=== PATIENT | female | born 1975 | race African-American/Black ===

== ENCOUNTER 2018-09-01 09:49 | Emergency (ER) | payer BC, MEDICAID ==
[2018-09-01] MEDS ORDERED: CLONIDINE HCL 0.2 MG TABLET PO ONE (10:04)
--- NOTE | 2018-09-01 10:09 | ER Document Report ---
ED Blood Pressure Problem - General Chief Complaint: High Blood Pressure Stated Complaint: BLOOD PRESSURE ISSUES Time Seen by Provider: 09/01/18 10:04 Mode of Arrival: Ambulatory Information source: Patient Notes: Chief complaint: Blood pressure History of complain:( obtained from----patient) 42 years old female moved from another town, unable to find a doctor, her blood pressure medications running out she was taking 4 of them and 2 of them have completely ran out. She was taking only clonidine and amlodipine. Presents here to refill her prescriptions. Had slight headache on and off. No other constitutional symptoms Onset: Gradual Duration: Long-standing Severity: Mild Quality: Not applicable Context: As described above Exacerbating factor and relieving factors: REVIEW OF SYSTEMS: CONSTITUTIONAL : Denies fever, chills, or sweats. Denies recent illness. EENT: Denies eye, ear, throat, or mouth pain or symptoms. Denies nasal or sinus congestion or discharge. Denies throat, tongue, or mouth swelling or difficulty swallowing. CARDIOVASCULAR: Denies chest pain. Denies palpitations or racing or irregular heart beat. Denies ankle edema. RESPIRATORY: Denies cough, cold, or chest congestion. Denies shortness of breath, difficulty breathing, or wheezing. GASTROINTESTINAL: Denies distention. Denies nausea, vomiting, or diarrhea. Denies blood in vomitus, stools, or per rectum. Denies black, tarry stools. Denies constipation. GENITOURINARY: Denies difficulty urinating, painful urination, burning, frequency, blood in urine, or discharge. FEMALE GENITOURINARY: Denies vaginal bleeding, heavy or abnormal periods, irregular periods. Denies vaginal discharge or odor. MUSCULOSKELETAL: Denies back or neck pain or stiffness. Denies joint pain or swelling. SKIN: Denies rash, lesions or sores. HEMATOLOGIC : Denies easy bruising or bleeding. LYMPHATIC: Denies swollen, enlarged glands. NEUROLOGICAL: Denies confusion or altered mental status. Denies passing out or loss of consciousness. Denies dizziness or lightheadedness. Denies headache. Denies weakness or paralysis or loss of use of either side. Denies problems with gait or speech. Denies sensory loss, numbness, or tingling. Denies seizures. PSYCHIATRIC: Denies anxiety or stress. Denies depression, suicidal ideation, or homicidal ideation. ALL OTHER SYSTEMS REVIEWED AND NEGATIVE. PHYSICAL EXAMINATION: GENERAL: Well-appearing, well-nourished and in no acute distress. HEAD: Atraumatic, normocephalic. EYES: Pupils equal round and reactive to light, extraocular movements intact, conjunctiva are normal. ENT: Nares patent, oropharynx clear without exudates. Moist mucous membranes. NECK: Normal range of motion, supple without lymphadenopathy LUNGS: Breath sounds clear to auscultation bilaterally and equal. No wheezes rales or rhonchi. HEART: Regular rate and rhythm without murmurs ABDOMEN: Soft, nontender, nondistended abdomen. No guarding, no rebound. No masses appreciated. Examination of genitals-deferred Musculoskeletal: Normal range of motion, no pitting or edema. No cyanosis. NEUROLOGICAL: Cranial nerves grossly intact. Normal speech, normal gait. Normal sensory, motor exams PSYCH: Normal mood, normal affect. SKIN: Warm, Dry, normal turgor, no rashes or lesions noted. Dictation was performed using [employer] voice recognition software TRAVEL OUTSIDE OF THE [place] IN LAST 30 DAYS: No - HPI Notes: Dictated - Related Data Allergies/Adverse Reactions: No Known Allergies Allergy (Unverified 09/01/18 09:49) Past Medical History - Social History Smoking Status: Former Smoker Cigarette use (# per day): No Chew tobacco use (# tins/day): No Frequency of alcohol use: Rare Drug Abuse: None Lives with: Family Family History: Reviewed & Not Pertinent Patient has suicidal ideation: No Patient has homicidal ideation: No Renal/ Medical History: Denies: Hx Peritoneal Dialysis Past Surgical History: Reports: Hx Section Review of Systems - Review of Systems Notes: Dictated Physical Exam - Vital signs Vitals: Temp Pulse Resp BP Pulse Ox 98.8 F 79 18 175/97 H 100 09/01/18 09:56 09/01/18 09:56 09/01/18 09:56 09/01/18 09:56 09/01/18 09:56 - Notes Notes: Dictated Course - Re-evaluation Re-evalutation: 09/01/18 10:06 Blood pressure was controlled with clonidine - Vital Signs Vital signs: Temp Pulse Resp BP Pulse Ox 98.8 F 79 18 175/97 H 100 09/01/18 09:56 09/01/18 09:56 09/01/18 09:56 09/01/18 09:56 09/01/18 09:56 Discharge - Discharge Clinical Impression: Hypertension Qualifiers: Hypertension type: essential hypertension Qualified Code(s): I10 - Essential ( primary) hypertension Condition: Fair Instructions: High Blood Pressure ([facility]) Prescriptions: Amlodipine Besylate [Norvasc 5 mg Tablet] 5 mg PO DAILY #30 tablet Atenolol 100 mg PO DAILY #30 tablet Clonidine HCl [Clonidine HCl ER] 0.1 mg PO Q12 #60 tab.er.12h Losartan/Hydrochlorothiazide [Losartan-Hctz 100-25 mg Tab] 1 each PO DAILY #30 tablet Referrals: ABBY KIM MD [Primary Care Provider] - Follow up as needed
[2018-09-01 11:18] VITALS: BP 159/96
== END 2018-09-01 11:18 | disposition home or self-care (01) ==
LOC: ER 09:49
DX: Z76.0 Encounter for issue of repeat prescription (principal); R51 Headache; I10 Essential (primary) hypertension; Z79.899 Other long term (current) drug therapy; Z87.891 Personal history of nicotine dependence
CPT/HCPCS: 99283

== ENCOUNTER 2019-02-12 11:38 | Emergency (ER) | payer SELFPAY ==
[2019-02-12] MEDS ORDERED: ASPIRIN 81 MG TABLET, CHEWABLE PO ONE (12:05)
[2019-02-12 12:18] LABS: ABSOLUTE BASOPHILS # (AUTO) 0.1 10^3/uL (0.0-0.2); ABSOLUTE LYMPHOCYTES (AUTO) 1.8 10^3/uL (0.5-4.7); ABSOLUTE MONOCYTES (AUTO) 0.4 10^3/uL (0.1-1.4); EOSINOPHILS % (AUTO) 0.7 % (0-6); HEMOGLOBIN 12.4 g/dL (12.0-15.5); MEAN CORPUSCULAR HEMOGLOBIN 29.2 pg (27.0-33.4); MEAN CORPUSCULAR HGB CONC 33.6 g/dL (32.0-36.0); MEAN CORPUSCULAR VOLUME 87 fl (80-97); MONOCYTES % (AUTO) 7.4 % (3-13); PLATELET COUNT 271 10^3/uL (150-450); RED BLOOD COUNT 4.25 10^6/uL (3.72-5.28); RED CELL DISTRIBUTION WIDTH 14.9 % (11.5-14.0); SEGMENTED NEUTROPHILS % (AUTO) 56.9 % (42-78); TOTAL CELLS COUNTED % (AUTO) 100 %; WHITE BLOOD COUNT 5.3 10^3/uL (4.0-10.5)
[2019-02-12 12:32] LABS: ALANINE AMINOTRANSFERASE 18 U/L (9-52); ALBUMIN 4.6 g/dL (3.5-5.0); ALKALINE PHOSPHATASE 70 U/L (38-126); ANION GAP 11 (5-19); ASPARTATE AMINO TRANSFERASE 22 U/L (14-36); BILIRUBIN,DIRECT 0.2 mg/dL (0.0-0.4); BILIRUBIN,TOTAL 0.3 mg/dL (0.2-1.3); BLOOD UREA NITROGEN 11 mg/dL (7-20); CALCIUM 9.2 mg/dL (8.4-10.2); CARBON DIOXIDE 27 mmol/L (22-30); CHLORIDE 103 mmol/L (98-107); CREATINE KINASE 97 U/L (30-135); GLUCOSE 95 mg/dL (75-110); POTASSIUM 3.7 mmol/L (3.6-5.0); SODIUM 140.7 mmol/L (137-145); TOTAL PROTEIN 8.3 g/dL (6.3-8.2)
[2019-02-12] MEDS ORDERED: HYDROCHLOROTHIAZIDE 25 MG TABLET PO ONE (12:34)
[2019-02-12] MEDS ORDERED: LOSARTAN POTASSIUM 50 MG TABLET PO ONE (12:34)
[2019-02-12] MEDS ORDERED: AMLODIPINE BESYLATE 5 MG TABLET PO ONE (12:35)
[2019-02-12] MEDS ORDERED: CLONIDINE HCL 0.1 MG TABLET PO ONE (12:35)
[2019-02-12 12:52] LABS: CREATINE KINASE MB 1.47 ng/mL (<4.55)
[2019-02-12 12:54] LABS: TROPONIN I 0.094 ng/mL
--- NOTE | 2019-02-12 13:58 | RADIOLOGY REPORT (SQ) ---
EXAM DESCRIPTION: CHEST SINGLE VIEW COMPLETED DATE/TIME: 02/12/2019 1:44 pm REASON FOR STUDY: chest pain COMPARISON: 04/20/2010 EXAM PARAMETERS: NUMBER OF VIEWS: One view. TECHNIQUE: Single frontal radiographic view of the chest acquired. RADIATION DOSE: NA LIMITATIONS: None. FINDINGS: LUNGS AND PLEURA: No opacities, masses or pneumothorax. No pleural effusion. MEDIASTINUM AND HILAR STRUCTURES: No masses. Contour normal. HEART AND VASCULAR STRUCTURES: Heart normal in size. Normal vasculature. BONES: No acute findings. HARDWARE: None in the chest. OTHER: No other significant finding. IMPRESSION: NO ACUTE RADIOGRAPHIC FINDING IN THE CHEST. TECHNICAL DOCUMENTATION: JOB ID: [id number] [email or web address]- All Rights Reserved Reading location - IP/workstation name: [email or web address]
--- NOTE | 2019-02-12 14:27 | ER Document Report ---
ED General - General Chief Complaint: Chest Pain Stated Complaint: CHEST PAIN Time Seen by Provider: 02/12/19 12:23 Primary Care Provider: [facility] JONES [NO LOCAL MD] - Follow up as needed TRAVEL OUTSIDE OF THE [place] IN LAST 30 DAYS: No - HPI Notes: Patient is a 43-year-old female who presents to the emergency department for evaluation of chest pain. She states is been going on for the last 2 to 3 days. She states her pain and achy pain, rates it a 2 out of 5. It is in the left upper chest. It does not radiate. It lasts approximately 15 seconds when it comes. She denies any aggravating or alleviating factors. She denies any associated shortness of breath, nausea, diaphoresis, near syncope. The patient also states that she is out of her blood pressure medication. She recently moved from [place]. She states that she was on blood pressure medications but has not yet established with a primary care physician. She had been here in the past and received a refill on her medications, but she ran out of them yesterday. She denies any headaches, no visual changes. She is still urinating normally. Speaking and swallowing without difficulty. Moving all 4 extremities normally. - Related Data Allergies/Adverse Reactions: No Known Allergies Allergy (Unverified 09/01/18 09:49) Past Medical History - Social History Smoking Status: Current Some Day Smoker Frequency of alcohol use: None Drug Abuse: None Family History: DM, Hypertension. denies: CAD Patient has suicidal ideation: No Patient has homicidal ideation: No - Past Medical History Cardiac Medical History: Reports: Hx Hypertension Renal/ Medical History: Denies: Hx Peritoneal Dialysis Past Surgical History: Reports: Hx Section Review of Systems - Review of Systems Constitutional: No symptoms reported EENT: No symptoms reported Cardiovascular: See HPI Respiratory: No symptoms reported Gastrointestinal: No symptoms reported Genitourinary: No symptoms reported Female Genitourinary: No symptoms reported Musculoskeletal: No symptoms reported Skin: No symptoms reported Neurological/Psychological: No symptoms reported Physical Exam - Vital signs Vitals: Temp Pulse Resp BP Pulse Ox 98.0 F 67 16 204/113 H 67 L 02/12/19 11:42 02/12/19 11:42 02/12/19 11:42 02/12/19 11:42 02/12/19 11:42 - Notes Notes: Vital signs reviewed, please refer to chart. Head is normocephalic, atraumatic. Pupils equal round, reactive to light. Neck is supple without meningismus. Heart is regular rate and rhythm. Lungs are clear to auscultation bilaterally. Chest wall excursion is equal bilaterally. Chest wall is tender over the area of her pain. Abdomen is soft, nontender, normoactive bowel sounds throughout. Extremities without cyanosis, clubbing. Posterior calves are nontender. Peripheral pulses are equal. Skin is warm and dry. Patient is awake, alert, neurological exam is nonfocal. Course - Re-evaluation Re-evalutation: 02/12/19 14:27 Patient is a 43-year-old female presents to the emergency department for evaluation of chest pain. She is markedly hypertensive on arrival but has not taken any of her medications. She is given her medications while here and her blood pressure improved to within normal limits. Laboratory investigations were obtained. Her initial troponin is indeterminate. Patient's chest pain is certainly not typical for angina. She obviously has risk factors and that she has an elevated BMI, smokes, and has significantly elevated blood pressure. Delta troponin has been ordered, will continue to follow. 02/12/19 15:05 Patient's story is certainly not typical for angina. Her blood pressures have been markedly improved following medication. She admits that she has been having increased stress, her chest pain certainly seems more likely related to that. Delta troponin is ordered and pending at this time. 02/12/2019 16:15 Patient's troponin came back and is still indeterminately elevated. Patient has not had significant chest pain since then. I explained to the patient that I did not have the labs that confirmed myocardial damage, but I certainly could not rule it out. We talked at length about this. We discussed the need for aggressive risk factor modification. She will follow-up closely. She states s he is more interested in scheduling as an outpatient, will follow up with the community [facility] in clinic. I expressed to her my concerns about the need for a stress test. She is told that she needs to quit smoking. I did write her for a one-month prescription of all of her antihypertensive medications. I reminded her that she could return at any time regarding this chest pain. I reminded her the importance of being compliant with her medications and establishing care with a primary care physician before her blood pressure medications run out. She voiced understanding to all of this. She understands that if this is in fact a cardiac issue her risks are significant, including heart attack, neurological deficits, and ability to care for self, loss of lifestyle, . She is to return to the ED with worsening or new concerning symptoms. - Vital Signs Vital signs: Temp Pulse Resp BP Pulse Ox 98.0 F 67 20 127/86 H 99 02/12/19 11:42 02/12/19 11:42 02/12/19 16:01 02/12/19 16:00 02/12/19 16:01 - Laboratory Result Diagrams: 02/12/19 12:02 02/12/19 12:02 Laboratory results interpreted by me: 02/12/19 02/12/19 12:02 12:02 RDW 14.9 H Total Protein 8.3 H - Diagnostic Test Radiology reviewed: Reports reviewed Radiology results interpreted by me: 02/12/19 14:27 Chest X-Ray 02/12/19 12:05 IMPRESSION: NO ACUTE RADIOGRAPHIC FINDING IN THE CHEST. - EKG Interpretation by Me Additional EKG results interpreted by me: 02/12/19 14:27 Normal sinus mechanism with a rate of [address]pm[address] Left axis deviation. ST changes in the lateral leads most likely consistent with LVH with strain versus lateral ischemia. No old studies available for comparison. Discharge - Discharge Clinical Impression: Elevated blood pressure reading in office with diagnosis of hypertension Chest pain Qualifiers: Chest pain type: unspecified Qualified Code(s): R07.9 - Chest pain, unspecified Condition: Stable Disposition: AGAINST MEDICAL ADVICE Instructions: Chest Pain of Unclear Cause ([facility]), High Blood Pressure, Requiring Treatment ([facility]) Additional Instructions: Take your medications as prescribed. You need to establish care with a primary care physician. [facility], contact them for further follow-up. If you develop worsening or new concerning symptoms of any sort, or if you change your mind regarding staying and having further evaluation as an inpatient, return immediately to the emergency department for reevaluation. Prescriptions: Amlodipine Besylate [Norvasc 5 mg Tablet] 5 mg PO DAILY #30 tablet Atenolol 100 mg PO DAILY #30 tablet Clonidine HCl [Clonidine HCl ER] 0.1 mg PO Q12 #60 tab.er.12h Losartan/Hydrochlorothiazide [Losartan-Hctz 100-25 mg Tab] 1 each PO DAILY #30 tablet Forms: Smoking Cessation Education [facility]errals: [facility] [NO LOCAL MD] - Follow up as needed
[2019-02-12 16:12] VITALS: BP 127/86
--- NOTE | 2019-02-14 10:33 | EKG REPORT ---
SEVERITY:- ABNORMAL ECG - SINUS RHYTHM PROBABLE LEFT ATRIAL ABNORMALITY LVH WITH SECONDARY REPOLARIZATION ABNORMALITY BORDERLINE PROLONGED QT INTERVAL : Confirmed by: Monica Nguyen 14-Feb-2019 10:32:38
== END 2019-02-12 16:25 | disposition left against medical advice (07) ==
LOC: ER 11:38
DX: R07.9 Chest pain, unspecified (principal); I10 Essential (primary) hypertension; Z79.899 Other long term (current) drug therapy; F17.200 Nicotine dependence, unspecified, uncomplicated
CPT/HCPCS: 36415; 71045; 80053; 82550; 82553; 84484; 85025; 93005; 93010; 99285

== ENCOUNTER 2020-07-31 17:50 | Emergency (ER) | payer SELFPAY ==
--- NOTE | 2020-07-31 18:10 | EKG REPORT ---
SEVERITY:- ABNORMAL ECG - SINUS RHYTHM PROBABLE LEFT ATRIAL ABNORMALITY LVH WITH SECONDARY REPOLARIZATION ABNORMALITY BORDERLINE PROLONGED QT INTERVAL : Confirmed by: Edu Galeas MD 31-Jul-2020 18:09:34
--- NOTE | 2020-07-31 18:56 | ER Document Report ---
ED Medical Screen (RME) - General Chief Complaint: Cough Stated Complaint: COUGH/CONGESTION/SOB/CHILLS/CHEST PAIN Time Seen by Provider: 07/31/20 18:51 Primary Care Provider: PAUL,EMPLOYEE [Primary Care Provider] - Follow up as needed Mode of Arrival: Ambulatory Information source: Patient Notes: 44-year-old female presents to ED for cough congestion shortness of breath and chest pain x2 days. She states she took Robitussin yesterday and today. She states she is on 3 blood pressure medicines and she forgot to take them this morning and she is not sure of the name or dose she thinks is amlodipine and clonidine but she is not sure of the other medication. She states she has them at home and she can take them as soon as she gets home. She states Tuesday night she fell asleep with the fan on and the window open. She stated Tuesday morning she started with a cough and congestion. She started taking Robitussin that time. She states she knows she is not supposed to take that when she is got her blood pressure. She states she also had a bolNiupaia sandwich today. Patient is alert oriented respirations regular right now. She does have some chest pain since Tuesday. I have greeted and performed a rapid initial assessment of this patient. A comprehensive ED assessment and evaluation of the patient, analysis of test results and completion of medical decision making process will be conducted by an additional ED providers. TRAVEL OUTSIDE OF THE [place] IN LAST 30 DAYS: No - Related Data Allergies/Adverse Reactions: No Known Allergies Allergy (Unverified 09/01/18 09:49) Past Medical History - Past Medical History Cardiac Medical History: Reports: Hx Hypertension Renal/ Medical History: Denies: Hx Peritoneal Dialysis Past Surgical History: Reports: Hx Section Physical Exam - Vital signs Vitals: Temp Pulse Resp BP Pulse Ox 97.4 F 92 18 206/107 H 98 07/31/20 17:58 07/31/20 17:58 07/31/20 17:58 07/31/20 17:58 07/31/20 17:58 Course - Vital Signs Vital signs: Temp Pulse Resp BP Pulse Ox 97.4 F 92 18 206/107 H 98 07/31/20 17:58 07/31/20 17:58 07/31/20 17:58 07/31/20 17:58 07/31/20 17:58 Doctor's Discharge - Discharge Referrals: HEALTH,EMPLOYEE [Primary Care Provider] - Follow up as needed
--- NOTE | 2020-07-31 19:25 | RADIOLOGY REPORT (SQ) ---
EXAM DESCRIPTION: CHEST SINGLE VIEW IMAGES COMPLETED DATE/TIME: 07/31/2020 7:14 pm REASON FOR STUDY: cough congestion short of breath COMPARISON: 02/12/2019 EXAM PARAMETERS: NUMBER OF VIEWS: One view. TECHNIQUE: Single frontal radiographic view of the chest acquired. RADIATION DOSE: NA LIMITATIONS: None. FINDINGS: LUNGS AND PLEURA: No opacities, masses or pneumothorax. No pleural effusion. MEDIASTINUM AND HILAR STRUCTURES: No masses. Contour normal. HEART AND VASCULAR STRUCTURES: Heart normal in size. Normal vasculature. BONES: No acute findings. HARDWARE: None in the chest. OTHER: No other significant finding. IMPRESSION: NO ACUTE RADIOGRAPHIC FINDING IN THE CHEST. TECHNICAL DOCUMENTATION: JOB ID: [id number] [email or web address]- All Rights Reserved Reading location - IP/workstation name: [email or web address]
[2020-08-01 00:02] LABS: ABSOLUTE EOSINOPHILS # (AUTO) 0.1 10^3/uL (0.0-0.6); ABSOLUTE LYMPHOCYTES (AUTO) 1.4 10^3/uL (0.5-4.7); ABSOLUTE MONOCYTES (AUTO) 0.4 10^3/uL (0.1-1.4); ABSOLUTE NEUT (AUTO) 2.6 10^3/uL (1.7-8.2); BASOPHILS % (AUTO) 0.7 % (0-2); EOSINOPHILS % (AUTO) 2.2 % (0-6); HEMATOCRIT 33.8 % (36.0-47.0); LYMPHOCYTES % (AUTO) 30.1 % (13-45); MEAN CORPUSCULAR HEMOGLOBIN 32.1 pg (27.0-33.4); MEAN CORPUSCULAR HGB CONC 35.5 g/dL (32.0-36.0); MEAN CORPUSCULAR VOLUME 90 fl (80-97); MONOCYTES % (AUTO) 8.9 % (3-13); PLATELET COUNT 212 10^3/uL (150-450); RED BLOOD COUNT 3.74 10^6/uL (3.72-5.28); RED CELL DISTRIBUTION WIDTH 14.2 % (11.5-14.0); SEGMENTED NEUTROPHILS % (AUTO) 58.1 % (42-78); TOTAL CELLS COUNTED % (AUTO) 100 %; WHITE BLOOD COUNT 4.5 10^3/uL (4.0-10.5)
[2020-08-01] MEDS ORDERED: CLONIDINE HCL 0.1 MG TABLET PO ONE (00:16)
[2020-08-01] MEDS ORDERED: ATENOLOL 50 MG TABLET PO ONE (00:16)
[2020-08-01] MEDS ORDERED: AMLODIPINE BESYLATE 5 MG TABLET PO ONE (00:16)
[2020-08-01 00:17] LABS: A TYPE INFLUENZA AG NEGATIVE (NEGATIVE); B INFLUENZA AG NEGATIVE (NEGATIVE)
--- NOTE | 2020-08-01 00:18 | ER Document Report ---
ED Respiratory Problem - General Mode of Arrival: Ambulatory TRAVEL OUTSIDE OF THE [place] IN LAST 30 DAYS: No <TOM TO - Last Filed: 08/01/20 03:00> <PAULETTE CARBONE - Last Filed: 08/01/20 11:48> - General Chief Complaint: Cough Stated Complaint: COUGH/CONGESTION/SOB/CHILLS/CHEST PAIN Time Seen by Provider: 07/31/20 18:51 Primary Care Provider: [facility] [Provider Group] - Follow up tomorrow GABRIEL GARNER MD [ACTIVE PROVISIONAL STAFF] - Follow up in 1 week Notes: Patient is a 44-year-old female presents emergency department with a chief complaint of cough, shortness of breath, and a little bit of chest pain that started about 2 days ago. Patient states that the chest pain comes and goes. Patient has a history of hypertension she currently takes amlodipine, atenolol, and clonidine. Patient states that she did not take her blood pressure medication this morning. Patient denies any fever. Patient states that she took some Robitussin to try to help with cough. (CAROL TOHANIE Nga) - Related Data Allergies/Adverse Reactions: No Known Allergies Allergy (Unverified 09/01/18 09:49) Past Medical History - General Information source: Patient - Social History Family History: DM, Hypertension. denies: CAD - Past Medical History Cardiac Medical History: Reports: Hx Hypertension Renal/ Medical History: Denies: Hx Peritoneal Dialysis Past Surgical History: Reports: Hx Section <TOM TO - Last Filed: 08/01/20 03:00> - Social History Smoking Status: Unknown if Ever Smoked <PAULETTE CARBONE - Last Filed: 08/01/20 11:48> Review of Systems <TOM TO - Last Filed: 08/01/20 03:00> - Review of Systems Notes: REVIEW OF SYSTEMS: CONSTITUTIONAL : Denies recent illness. Denies recent unintentional weight loss. Denies fever, chills, or sweats. EENT: See HPI. CARDIOVASCULAR: See HPI. RESPIRATORY: See HPI. GASTROINTESTINAL: Denies nausea, vomiting, and diarrhea. Denies abdominal pain. Denies constipation. GENITOURINARY: Denies difficulty urinating, burning, blood in urine, urgency or frequency. MUSCULOSKELETAL: Denies neck and back pain. Denies joint pain or swelling. SKIN: Denies rash, itchiness, or lesions HEMATOLOGIC : Denies easy bruising or bleeding. LYMPHATIC: Denies swollen, painful, enlarged glands. NEUROLOGICAL: Denies no numbness or tingling denies weakness. Denies headache. Denies altered mental status. Denies alteration in speech. PSYCHIATRIC: Denies stress, anxiety, alteration in sleep patterns, or depression. All other systems reviewed and negative. (TOM TO) Physical Exam <TOM TO - Last Filed: 08/01/20 03:00> - Vital signs Vitals: Temp Pulse Resp BP Pulse Ox 97.4 F 92 18 206/107 H 98 07/31/20 17:58 07/31/20 17:58 07/31/20 17:58 07/31/20 17:58 07/31/20 17:58 - Notes Notes: PHYSICAL EXAMINATION: GENERAL: Appears well, healthy, well-nourished, no acute distress. HEAD: Normocephalic, atraumatic. EYES: PERRL, conjunctiva normal, all extraocular movements intact, sclera nonicteric ENT: Moist mucous membranes. NECK: Supple, no noticeable swelling, redness, rash. Normal range of motion. LUNGS: Equal breath sounds bilaterally and clear to auscultation. No wheezes rales or rhonchi. CARDIOVASCULAR: Grade 2 systolic murmur, regular rate, regular rhythm. Radial pulses 2+, normal. ABDOMEN: Normoactive bowel sounds. Soft, nontender, no guarding, no rebound tenderness, and no masses palpated. EXTREMITIES: Normal strength and range of motion, no pitting or edema. No cyanosis. NEUROLOGICAL: Moves all extremities upon command. Strength 5/5 in all extremities. PSYCH: Normal mood, normal affect. SKIN: Warm, dry. No rash, lesions, ulcerations noted. Normal skin turgor. (TOM TO) Course - Laboratory Result Diagrams: 07/31/20 23:40 07/31/20 23:40 <TOM TO - Last Filed: 08/01/20 03:00> - Laboratory Result Diagrams: 07/31/20 23:40 07/31/20 23:40 <PAULETTE CARBONE - Last Filed: 08/01/20 11:48> - Re-evaluation Re-evalutation: 08/01/20 01:41 Hematology is unremarkable. Chemistries show potassium of 3.3. We will give the patient 40 M EQ's of potassium. Troponin is indeterminate at 0.023. BNP is slightly elevated. I suspect patient is having a troponin leak from being short of breath. Another troponin and EKG will be drawn. 08/01/20 02:01 Bedside report given to SOHAM Peace. She will follow-up with troponin. (TOM TO) 08/01/20 04:12 Repeat troponin is essentially unchanged from prior. All test results discussed with patient. Patient understands the need for follow-up with [facility] and cardiology. She understands self quarantine instructions, she is pending Covid test. (PAULETTE CARBONE) - Vital Signs Vital signs: Temp Pulse Resp BP Pulse Ox 98.6 F 85 24 H 158/90 H 99 07/31/20 21:54 07/31/20 21:54 08/01/20 03:00 08/01/20 02:31 08/01/20 03:00 - Laboratory Laboratory results interpreted by me: 07/31/20 07/31/20 07/31/20 23:40 23:40 23:40 Hct 33.8 L RDW 14.2 H Potassium 3.3 L Glucose 113 H NT-Pro-B Natriuret Pep 426 H - EKG Interpretation by Me Additional EKG results interpreted by me: 08/01/20 00:00 Sinus rhythm. Rate 92. ND 136; QRS 86; QT 412; QTc 510. ST elevations noted. There are slight depressions noted in leads V5 and V6, this was also seen on previous EKG done on the 2018. 08/01/20 02:30 Sinus rhythm. Rate 66. ND 140; QRS 92; QT 464; QTc 487. No ST elevations noted. Similar EKG from earlier. (TOM TO) Discharge <TOM TO - Last Filed: 08/01/20 03:00> <PAULETTE CARBONE - Last Filed: 08/01/20 11:48> - Discharge Clinical Impression: Cough, Essential hypertension, Suspected COVID-19 virus infection Chest pain Qualifiers: Chest pain type: unspecified Qualified Code(s): R07.9 - Chest pain, unspecified Condition: Stable Disposition: HOME, SELF-CARE Instructions: COVID-19 Guidance for Persons Under Investigation Additional Instructions: You were seen today in emergency department for chest pain. You are being tested for COVID-19. As a person under investigation for COVID-19, the [facility] (division on public health) advises you to adhere to the following guidance until your test results are reported to you. If your test result is positive, you will receive additional information from your provider and your local health department at that time. Remain at home until you are cleared by the health provider or public health authorities. Keep a log of visitors to your home, notify any visitors to your home of your isolation status. If you plan to move to a new address or leave the [facility], notify the local health department in your [facility]. Call your Doctor or seek care if you have an urgent medical need. Before seeking medical care, call him to get instructions from the provider before arriving at the medical office, clinic, or hospital. Notify them that you are being tested for the virus (COVID-19) so that arrangements can be made, as necessary, to prevent transmission to others in the healthcare setting. Next, notify the local health department in your county. Please follow-up with your primary care provider tomorrow, over the phone. Let them know that you are being tested for COVID-19. Please see if they can put in your referral to the high speed printer operator as soon as possible. You can also call the high speed printer operator below to make an appointment. Prescriptions: Cetirizine HCl [All Day Allergy] 10 mg PO DAILY #30 tablet Benzonatate [Tessalon Perles 100 mg Capsule] 100 mg PO Q8HP PRN #40 capsule PRN Reason: Forms: Return to Work Referrals: [facility] [Provider Group] - Follow up tomorrow GABRIEL GARNER MD [ACTIVE PROVISIONAL STAFF] - Follow up in 1 week
[2020-08-01 00:23] LABS: ALBUMIN 4.2 g/dL (3.5-5.0); ALKALINE PHOSPHATASE 73 U/L (38-126); ANION GAP 12 (5-19); ASPARTATE AMINO TRANSFERASE 23 U/L (14-36); BILIRUBIN,DIRECT 0.1 mg/dL (0.0-0.4); BILIRUBIN,TOTAL 0.4 mg/dL (0.2-1.3); BLOOD UREA NITROGEN 7 mg/dL (7-20); CALCIUM 9.2 mg/dL (8.4-10.2); CARBON DIOXIDE 27 mmol/L (22-30); CHLORIDE 100 mmol/L (98-107); GLUCOSE 113 mg/dL (75-110); POTASSIUM 3.3 mmol/L (3.6-5.0); TOTAL PROTEIN 7.6 g/dL (6.3-8.2)
[2020-08-01] MEDS ORDERED: CETIRIZINE 10 MG TABLET PO ONE (00:33)
[2020-08-01] MEDS ORDERED: BENZONATATE 100 MG CAPSULE PO ONE (01:03)
[2020-08-01] MEDS ORDERED: POTASSIUM CHLORIDE 20 MEQ PACKET PO ONE (01:41)
[2020-08-01 04:00] VITALS: BP 158/90
--- NOTE | 2020-08-01 09:47 | EKG REPORT ---
SEVERITY:- ABNORMAL ECG - SINUS RHYTHM LEFT ATRIAL ABNORMALITY LVH WITH SECONDARY REPOLARIZATION ABNORMALITY BORDERLINE PROLONGED QT INTERVAL : Confirmed by: Edu Galeas MD 01-Aug-2020 09:45:41
== END 2020-08-01 02:50 | disposition home or self-care (01) ==
LOC: ER 17:50
DX: R05 Cough (principal); R68.89 Other general symptoms and signs; R06.02 Shortness of breath; I10 Essential (primary) hypertension; Z20.828 Contact with and (suspected) exposure to other viral communicable diseases
CPT/HCPCS: 93005 ×2; 99285; 36415; 85025; 87635; 80053; 84484; 87804; 83880; 71045; 93010 ×2; J3490; C9803

== ENCOUNTER → 2020-08-11 | Outpatient (CLI) | payer OTHER ==
[2020-08-11 08:46] LABS: ABSOLUTE EOSINOPHILS # (AUTO) 0.1 10^3/uL (0.0-0.6); ABSOLUTE LYMPHOCYTES (AUTO) 1.3 10^3/uL (0.5-4.7); ABSOLUTE MONOCYTES (AUTO) 0.4 10^3/uL (0.1-1.4); ABSOLUTE NEUT (AUTO) 2.3 10^3/uL (1.7-8.2); BASOPHILS % (AUTO) 1.1 % (0-2); EOSINOPHILS % (AUTO) 1.4 % (0-6); HEMATOCRIT 36.4 % (36.0-47.0); HEMOGLOBIN 12.7 g/dL (12.0-15.5); LYMPHOCYTES % (AUTO) 31.5 % (13-45); MEAN CORPUSCULAR HEMOGLOBIN 31.3 pg (27.0-33.4); MEAN CORPUSCULAR HGB CONC 34.8 g/dL (32.0-36.0); MEAN CORPUSCULAR VOLUME 90 fl (80-97); MONOCYTES % (AUTO) 9.4 % (3-13); PLATELET COUNT 246 10^3/uL (150-450); RED BLOOD COUNT 4.04 10^6/uL (3.72-5.28); RED CELL DISTRIBUTION WIDTH 14.1 % (11.5-14.0); SEGMENTED NEUTROPHILS % (AUTO) 56.6 % (42-78); TOTAL CELLS COUNTED % (AUTO) 100 %
[2020-08-11 08:56] LABS: APPEARANCE,URINE CLOUDY; BILIRUBIN,URINE NEGATIVE (NEGATIVE); COLOR,URINE RED; GLUCOSE, URINE 50 mg/dL (NEGATIVE); KETONES,URINE NEGATIVE (NEGATIVE); LEUKOCYTE ESTERASE,URINE NEGATIVE (NEGATIVE); NITRITE,URINE NEGATIVE (NEGATIVE); PROTEIN,URINE 100 mg/dL (NEGATIVE); URINE SPECIFIC GRAVITY 1.013; UROBILINOGEN,URINE NEGATIVE mg/dL (<2.0)
[2020-08-11 09:14] LABS: ALBUMIN 4.5 g/dL (3.5-5.0); ALKALINE PHOSPHATASE 65 U/L (38-126); ANION GAP 9 (5-19); ASPARTATE AMINO TRANSFERASE 22 U/L (14-36); BILIRUBIN,DIRECT 0.2 mg/dL (0.0-0.4); BILIRUBIN,TOTAL 0.6 mg/dL (0.2-1.3); BLOOD UREA NITROGEN 13 mg/dL (7-20); CALCIUM 9.3 mg/dL (8.4-10.2); CARBON DIOXIDE 30 mmol/L (22-30); CHLORIDE 101 mmol/L (98-107); CHOLESTEROL 184.94 mg/dL (0-200); GLUCOSE 116 mg/dL (75-110); POTASSIUM 3.8 mmol/L (3.6-5.0); TRIGLYCERIDES 157 mg/dL (<150)
[2020-08-11 09:25] LABS: DIRECT LDL 117 mg/dL (<100)
[2020-08-11 09:30] LABS: VLDL CHOLESTEROL 31.4 mg/dL (10-31)
--- NOTE | 2020-08-11 15:51 | EKG REPORT ---
SEVERITY:- ABNORMAL ECG - SINUS RHYTHM PROBABLE LEFT ATRIAL ABNORMALITY LVH WITH SECONDARY REPOLARIZATION ABNORMALITY BORDERLINE PROLONGED QT INTERVAL : Confirmed by: Lanette Marques MD 11-Aug-2020 15:50:49
== END ==
LOC: OD 07:40
PROVIDERS: ATTEND Internal Medicine
DX: I10 Essential (primary) hypertension (principal); R35.1 Nocturia; R07.9 Chest pain, unspecified
CPT/HCPCS: 36415; 80053; 80061; 81001; 83036; 84443; 85025; 93005; 93010